=== PATIENT | female | born 1970 | race African-American/Black ===

== ENCOUNTER 2017-02-13 18:00 | Emergency (ER) | payer SELFPAY ==
[~2017-02-13] VITALS: Ht 162.6 cm; Wt 87.5 kg
[~2017-02-13 18:00] MED LIST: AMLODIPINE BESYL5 MG PO; ATARAX,VISTARIL25 MG PO; ELIMITE 5% CREA60 GM TP; FLEXERIL10 MG PO; KENALOG,ARISTOC80 G1 TP; LOSARTAN POTAS100 MG PO; NAPROSYN500 MG PO; PREDNISONE20 MG PO; ULTRAM50 MG PO; ZANTAC300 MG PO
[2017-02-13 19:10] LABS: HEMATOCRIT 31.7 % (36.0-46.0); MCH 27.7 PG (29.0-34.0); MCHC 31.9 G/DL (30.0-36.0); MCV 86.8 FL (83-99); MEAN PLAT.VOLUME 9.6 uM^3 (9.5-12.4); PLATELET COUNT 254 K/uL (156-360); RBC DIS.WIDTH-CV 13.8 % (11.8-14.6); RBC DIS.WIDTH-SD 44.4 % (39-53); RED BLOOD COUNT 3.65 M/uL (3.80-5.20); WHITE BLOOD COUNT 11.3 K/uL (4.1-10.2)
[2017-02-13 19:20] LABS: CHLORIDE 106 mEq/L (99-109); POTASSIUM 3.3 mEq/L (3.7-5.4); SODIUM 140 mEq/L (136-147)
[2017-02-13 19:23] LABS: GLUCOSE 87 mg/dL (70-99)
[2017-02-13 19:24] LABS: ANION GAP 10 MEQ/L (2-14)
[2017-02-13 19:25] LABS: TOTAL BILIRUBIN 0.2 mg/dL (0.0-1.0)
[2017-02-13 19:26] LABS: ALKALINE PHOSPHATASE 64 IU/L (3-129); GFR ESTIMATE (CALCULATED) > 59 mL/min/
[2017-02-13 19:27] LABS: UREA NITROGEN (BUN) 11 mg/dL (9-23)
[2017-02-13 19:36] LABS: QUANTITATIVE HCG < 4.0 MIU/ML
[2017-02-13 20:20] LABS: ADD MIUA? NO; BILIRUBIN NEGATIVE; BLOOD NEGATIVE; COLOR STRAW ((YELLOW)); GLUCOSE (STRIP) NEGATIVE; KETONES NEGATIVE; LEUKOCYTES NEGATIVE; NITRITE NEGATIVE; PROTEIN (STRIP) NEGATIVE; SPECIFIC GRAVITY 1.008 (1.000-1.030); UCUL ADDED? NO; UROBILINOGEN 0.2 MG/DL (0.2-1.0)
[2017-02-13] MEDS ORDERED: MOTRIN600 MG PO (22:09)
[2017-02-13] MEDS ORDERED: PYRIDIUM200 MG PO (22:09)
[2017-02-13] MEDS ORDERED: ROXICODONE5 MG PO (22:09)
[2017-02-13 22:28] VITALS: BP 166/95
[2017-02-13 22:38] LABS: BACTERIA NONE SEEN /HPF; CASTS NONE SEEN /LPF; CRYSTALS NONE SEEN; EPITHELIAL CELLS RARE /HPF; MUCUS RARE /LPF; RED BLOOD CELLS NONE SEEN /HPF (0-5); WHITE BLOOD CELLS 0-5 /HPF (0-5)
== END 2017-02-13 22:15 | disposition home or self-care (01) ==
LOC: EME 18:00
PROVIDERS: Emergency Medicine
DX: N20.0 Calculus of kidney (principal); D25.9 Leiomyoma of uterus, unspecified; I10 Essential (primary) hypertension; Z87.891 Personal history of nicotine dependence
CPT/HCPCS: 74177; 80053; 81003; 81015; 84702; 85027; 99281; 99285; J1885